=== PATIENT | male | born 1990 | race Caucasian/White ===

== ENCOUNTER 2018-01-01 08:20 | Emergency (ER) | payer SELFPAY ==
[~2018-01-01] VITALS: Ht 180.3 cm; Wt 83.9 kg
--- NOTE | 2018-01-01 08:33 | NUR ---
Dr Pires at the bedside for MSE.
[2018-01-01 09:07] VITALS: BP 108/60
== END 2018-01-01 09:10 | disposition home or self-care (01) ==
LOC: ER 08:20
DX: S60.221A Contusion of right hand, initial encounter (principal); S80.01XA Contusion of right knee, initial encounter; V23.4XXA Motorcycle driver injured in collision with car, pick-up truck or van in traffic accident, initial encounter; Y93.89 Activity, other specified; Y92.410 Unspecified street and highway as the place of occurrence of the external cause; Y99.9 Unspecified external cause status
CPT/HCPCS: 73130; 73564; 99284; A4663